=== PATIENT | female | born 1995 | race African-American/Black ===

== ENCOUNTER 2023-01-25 00:39 | Emergency (ER) | payer OTHER, SELFPAY ==
[2023-01-25 00:42] VITALS: BP 125/57; PULSE 60; RESP 18; TEMP 36.1; O2SAT 100
--- NOTE | 2023-01-25 02:23 | ED.DENTAL ---
HPI - Dental/Oral General Chief complaint: Dental/Oral <Katelyn Lowe PA-C - Last Filed: 01/25/23 03:42> Stated complaint: dental pain <ANGÉLICA Turner Last Filed: 01/25/23 03:42> Time Seen by Provider: 01/25/23 01:32 <ANGÉLICA Turner Last Filed: 01/25/23 03:42> History of Present Illness HPI Narrative: 27-year-old female here for evaluation of right upper dental pain x3 days. Patient states that she was seen by her dentist and was recommended to have a root canal but she cannot afford this. States that she used ibuprofen 3 days ago but has not had any since then. Has been treating with Tylenol. No facial swelling, trismus, sore throat, fevers or chills, nausea or vomiting. <ANGÉLICA Turner Last Filed: 01/25/23 03:42> Related Data Home medications: Home Medications Medication Instructions Recorded Confirmed Daily 10/10/19 ferrous sulfate 10/10/19 <ANGÉLICA Turner Last Filed: 01/25/23 03:42> Allergies/adverse reactions: Allergies Allergy/AdvReac Type Severity Reaction Status Date / Time latex Allergy RADHA Acharya Verified 05/27/19 14:39 ING <ANGÉLICA Turner Last Filed: 01/25/23 03:42> Review of Systems Review of Systems: Gen.: Denies fevers or chills Eyes: Denies eye pain or visual change ENT: Reports dental pain Respiratory: Denies shortness of breath or cough CV: Denies chest pain or palpitations GI: Denies abdominal pain nausea, emesis or diarrhea : denies burning, urgency, frequency or hematuria Musculoskeletal: Denies back pain or muscle pain Neuro: Denies numbness, tingling, weakness or focal weakness Skin: Denies rash Except as documented, all other systems reviewed and negative <ANGÉLICA Turner Last Filed: 01/25/23 03:42> [facility] Social History Social History: Social History Gender identity (if verbalized by the patient): Female <Katelyn Lowe PA-C - Last Filed: 01/25/23 03:42> Exam Narrative: Gen: Alert, oriented, no acute distress Eyes: EOMI, no icterus Pulm: Respirations even and unlabored, symmetric thorax expansion, no audible stridor or visible cyanosis ENT: Tooth #31 is cracked. No visible periapical abscess. No trismus. CV: Regular rate per telemetry GI: No distension, no voluntary/involuntary guarding Neuro: AOx4, moves all extremities without apparent difficulty or weakness, follows commands Skin: No jaundice, no visible bruising, rashes, lesions or wounds on exposed skin Psych: Normal mood/affect, insight/judgement good, adequate fund of knowledge, recent/remote memory intact <Katelyn Lowe PA-C - Last Filed: 01/25/23 03:42> [employer]GER/PA Physician Supervision This is a was performed by both a physician and an APC. I performed all aspects of the MDM as documented w/ the following additions: 27-year-old female seen and treated for dental pain. Instructed to follow-up with a dentist.All questions answered. Patient in agreement w/ disposition. <Delvis Ruelas MD - Last Filed: 01/29/23 19:54> Vital Signs Vital signs: Vital Signs Temperature 97.0 F L 01/25/23 00:42 Pulse Rate 60 01/25/23 00:42 Respiratory Rate 18 01/25/23 00:42 Blood Pressure 125/57 L 01/25/23 00:42 Pulse Oximetry 100 01/25/23 00:42 Oxygen Delivery Room Air 01/25/23 00:42 Temperature 98 F 01/25/23 03:00 Pulse Rate 69 01/25/23 03:00 Respiratory Rate 18 01/25/23 03:00 Blood Pressure 118/79 01/25/23 03:00 Pulse Oximetry 99 01/25/23 03:00 Oxygen Delivery Room Air 01/25/23 00:42 <Katelyn Lowe PA-C - Last Filed: 01/25/23 03:42> Vital Signs Temperature 97.0 F L 01/25/23 00:42 Pulse Rate 60 01/25/23 00:42 Respiratory Rate 18 01/25/23 00:42 Blood Pressure 125/57 L 01/25/23 00:42 Pulse Oximetry 100 01/25/23 00:42 Oxygen Delivery Room Air
[2023-01-25] MEDS: KETOROLAC 30 MG/ML VIAL (*BKC) IM (02:25)
[2023-01-25] MEDS: AMOXICILLIN 500 MG CAPSULE PO (02:25)
[2023-01-25 03:00] VITALS: BP 118/79; PULSE 69; RESP 18; TEMP 36.6; O2SAT 99
== END 2023-01-25 03:01 | disposition home or self-care (01) ==
PROVIDERS: Emergency Provider Physician Assistant
DX: S02.5XXA Fracture of tooth (traumatic), initial encounter for closed fracture (principal); X58.XXXA Exposure to other specified factors, initial encounter
CPT/HCPCS: 96372; 99283; A9270; J1885